=== PATIENT | male | born 1955 | race Caucasian/White ===

== ENCOUNTER 2018-09-09 12:45 | Emergency (ER) | payer OTHER ==
[~2018-09-09] VITALS: Ht 160 cm; Wt 76.0 kg
[~2018-09-09 12:45] MED LIST: ASPI-1393 PO; ATOR-2 PO; CARV3.1242 PO; CLOP75TA4 PO; LISI2.5T47 PO; LORA10TA7 PO; METF-416 PO; MULT-1146 PO; NITR0.4T49 SL
[2018-09-09] MEDS ORDERED: NITROGLYCERIN OINT 1GM/INCH UDPKT TD ONE (14:00)
[2018-09-09] MEDS ORDERED: ASPIRIN 81MG TABLET PO ONE (14:00)
[2018-09-09 14:02] LABS: INR 1.1; PROTHROMBIN TIME 10.8 sec (9.6-11.0)
[2018-09-09 14:06] LABS: BASOPHILS % 0.6 % (0.0-2.0); CHLORIDE 107 mEq/L (98-107); EOSINOPHILS % 4.1 % (0.0-5.0); HEMOGLOBIN. 14.6 g/dL (14.0-18.0); LYMPHOCYTES % 35.7 % (20.0-50.0); MEAN CORPUSCULAR HEMOGLOBIN 32.2 pg (28.0-32.0); MEAN CORPUSCULAR VOLUME 92.5 fL (80.0-94.0); MEAN PLATELET VOLUME 9.4 fl (7.4-10.4); MONOCYTES % 11.1 % (2.0-8.0); NEUTROPHILS % 48.5 % (40.0-76.0); PLATELET 151 x1000/uL (130-400); RED BLOOD CELL COUNT 4.55 mill/uL (4.7-6.1); RED CELL DISTRIBUTION WIDTH 13.8 % (11.6-14.6)
[2018-09-09 15:13] LABS: BASOPHILS % 0.9 % (0.0-2.0); EOSINOPHILS % 4.4 % (0.0-5.0); HEMATOCRIT. 40.6 % (42.0-52.0); HEMOGLOBIN. 14.3 g/dL (14.0-18.0); LYMPHOCYTES % 32.3 % (20.0-50.0); MEAN CORPUSCULAR HEMOGLOBIN 32.5 pg (28.0-32.0); MEAN PLATELET VOLUME 9.3 fl (7.4-10.4); MONOCYTES % 12.8 % (2.0-8.0); NEUTROPHILS % 49.6 % (40.0-76.0); PLATELET 146 x1000/uL (130-400); RED BLOOD CELL COUNT 4.41 mill/uL (4.7-6.1); RED CELL DISTRIBUTION WIDTH 13.9 % (11.6-14.6)
[2018-09-09 15:14] LABS: CHLORIDE 108 mEq/L (98-107)
[2018-09-09 15:20] LABS: INR 1.1; PARTIAL THROMBOPLASTIN TIME 27.3 sec (23.4-31.0); PROTHROMBIN TIME 10.9 sec (9.6-11.0)
[2018-09-09 16:44] VITALS: BP 117/73
== END 2018-09-09 18:38 | disposition short-term general hospital (02) ==
LOC: ER 12:45 → CANBEDREQ 18:48
DX: R07.89 Other chest pain (principal); I10 Essential (primary) hypertension; I25.10 Atherosclerotic heart disease of native coronary artery without angina pectoris; I25.2 Old myocardial infarction; E11.9 Type 2 diabetes mellitus without complications; Z79.84 Long term (current) use of oral hypoglycemic drugs; Z98.61 Coronary angioplasty status; Z79.82 Long term (current) use of aspirin
CPT/HCPCS: 36415; 71045; 83880; 84484; 93005; 99285

== ENCOUNTER 2019-12-27 15:05 | Emergency (ER) | payer OTHER ==
[~2019-12-27] VITALS: Ht 170.2 cm; Wt 78.0 kg
[~2019-12-27 15:05] MED LIST changes: -ASPI-1393 PO; +ASPI-1497 PO
[2019-12-27 15:06] VITALS: BP 137/89
== END 2019-12-27 18:08 | disposition home or self-care (01) ==
LOC: ER 15:24
DX: I10 Essential (primary) hypertension (principal); R07.9 Chest pain, unspecified; E11.9 Type 2 diabetes mellitus without complications; I25.10 Atherosclerotic heart disease of native coronary artery without angina pectoris
CPT/HCPCS: 93005